=== PATIENT | female | born 1970 | race Caucasian/White ===

== ENCOUNTER 2017-02-06 20:43 | Emergency (ER) | payer SELFPAY ==
[~2017-02-06] VITALS: Ht 144.8 cm; Wt 43.1 kg
[2017-02-06] MEDS ORDERED: SUCRALFATE 1GM T1 GM NG (21:00)
[2017-02-06] MEDS ORDERED: OMEPRAZOLE20 MG PO (21:00)
[2017-02-06] MEDS ORDERED: PANTOPRAZOLE SO40 MG PO (21:01)
--- OUTSIDE RECORDS SUMMARY | 2017-02-06 21:27 | External Medical Summary Rpt | CCD ---
Author Author [employer] Organization [employer] Address Unknown Phone Unavailable Purpose Continuity of Care Document - through 2016
--- OUTSIDE RECORDS SUMMARY | 2017-02-06 21:27 | External Medical Summary Rpt | CCD ---
Demographics Preferred Language Romanian Marital Status Unknown Buddhist Affiliation Unknown Race Unknown Ethnic Group Unknown Author Author , SHILA FUCHS Address Unknown Phone Immunization No patient found.
--- OUTSIDE RECORDS SUMMARY | 2017-02-06 21:27 | External Medical Summary Rpt | CCD ---
Author Author , SHILA FUCHS Address Unknown Phone [email or web address] Purpose Continuity of Care Document - through 2016
--- OUTSIDE RECORDS SUMMARY | 2017-02-06 21:27 | External Medical Summary Rpt | CCD ---
Author Author , SHILA FUCHS Address Unknown Phone [email or web address] Purpose Continuity of Care Document - through 2016
--- OUTSIDE RECORDS SUMMARY | 2017-02-06 21:27 | External Medical Summary Rpt | CCD ---
Demographics Preferred Language Azeri Marital Status Unknown Islam Affiliation Unknown Race Unknown Ethnic Group Unknown Author Author , SHILA FUCHS Address Unknown Phone Immunization No patient found.
--- OUTSIDE RECORDS SUMMARY | 2017-02-06 21:28 | External Medical Summary Rpt ---
Demographics Preferred Language Unknown Marital Status Unknown Latter Day Affiliation Unknown Race Unknown Ethnic Group Unknown Author Author SHILA Knapp, [employer] Organization [employer] Address Unknown Phone Unavailable
--- OUTSIDE RECORDS SUMMARY | 2017-02-06 21:28 | External Medical Summary Rpt ---
Demographics Preferred Language Unknown Marital Status Unknown Roman Catholic Affiliation Unknown Race Unknown Ethnic Group Unknown Author Author SHILA Knapp, [employer] Organization [employer] Address Unknown Phone Unavailable
[2017-02-06 22:01] LABS: HEMOGLOBIN 9.6 g/dL (12.2-16.2); LYMPH # 2.3 K/mm3 (0.7-4.5); LYMPH % 22.9 % (10-50.0)
[2017-02-06 22:49] LABS: URINE BILIRUBIN - DIPSTICK NEGATIVE (NEG); URINE BLOOD NEGATIVE (NEG)
[2017-02-06 22:51] LABS: URINE SQUAMOUS CELLS OCC #/hpf (0-5)
--- NOTE | 2017-02-06 23:06 | RADIOLOGY REPORT PS360 ---
CHEST(2 VIEWS-NOT PORTABLE) Ordering physician: Age: 46 years Female INDICATION: chest symptomsCOUGHING congestion. Smoker. Symptoms 3 weeks. PROCEDURE: CHEST(2 VIEWS-NOT PORTABLE) No previous studies for comparison FINDINGS: Lungs, hyperexpanded, but clear with nothing definitely acute. No focal pneumonia. Slight coarsening markings at lower lobe on lateral view but with no definitive pneumonia. The upper lung hendricks appear clear. Heart alpa and mediastinal structures satisfactory. No pneumothorax. No pleural effusion. Heart normal size. Normal pulmonary vascularity. Hilar and mediastinal structures appear satisfactory. Chest wall unremarkable.. IMPRESSION ----- No focal pneumonia. Nothing definitely acute Hyperexpansion suggesting developing COPD
--- NOTE | 2017-02-06 23:24 | Emergency Room Report ---
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 N Clinical Suspician of Infection? Y Mental Status: 1 - Regular (Normal Baseline) Sepsis Risk:Possible Sepsis Risk Have you (or family members/close friends) recently traveled outside the [place]? N If Yes, where/when: Have you had exposure to infectious disease within the past month? N TB? Other? Specify: Source patient, RN notes reviewed, family, RN/MD Exam Limitations no limitations Comment This is a 46-year-old lady arriving to the emergency room with shortness of breath, for the past 10 days. Patient smokes approximately 2 packs of cigarettes a day, advised that she has no financial resources to afford any medications. Patient has any chest pain, any palpitations, any recent travel, any recent exposure to sick contacts. ALLERGIES Coded Allergies: No Known Allergies (02/06/17) Home Medications Reported Medications Omeprazole (Omeprazole 20MG) 20 MG PO BID Sucralfate (Sucralfate 1GM Tablet) 1 GM NG ACHS Pantoprazole Sodium (Pantoprazole 40MG) 40 MG PO BID History Medical History General CAD? No Angina: No GA: No Hypertension? Yes Hyperlipidemia? No CHF? No DVT? No PE? No COPD? Yes Asthma? Yes Anemia? Yes GERD? Yes Gastric ulcers? Yes GI Bleed? Yes Hernia? No Thyroid Problems? No Hypothyroidism? No CVA? No Seizures? Yes Diabetes? No Renal Insuffiency? No End Stage Renal Disease? No UTI? No Stones? No BPH? No GB Disease: No Nephritic Syndrome? No Asplenia? No Hepatitis? No Sickle Cell Disease? No Arthritis? No Migraines? Yes Cataracts? No Glaucoma? No MRSA? No HIV? No TB? No Anxiety? No Depression? No Cancer? No More? 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 No: respiratory distress. Lung Sounds bilateral: wheezing. 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 No Comment 0-given the patient's limited financial abilities I have advised her that she will need a one time dose of Depo-Medrol and Bicillin L-A. When the nurse came the patient's room with medications ready patient that she is fearful of needles and refuses both medications requesting oral alternatives instead. Canceled the IM shots, was sent patient home with Keflex and prednisone, instructed to follow up with PCP if no better. Patient strongly encouraged to stop smoking. Results/Orders Laboratory Tests 02/06/172239: Urine Color YELLOW, Urine Appearance CLEAR, Urine pH 7.0, Ur Specific [place] 1.010, Urine Protein NEGATIVE, Urine Ketones NEGATIVE, Urine Blood NEGATIVE, Urine Nitrate NEGATIVE, Urine Bilirubin NEGATIVE, Urine Urobilinogen 0.2, Ur Leukocyte Esterase NEGATIVE, Urine WBC 3-5, Ur Squamous Epith Cells OCC, Urine Glucose NEGATIVE 02/06/172109: Lactic Acid 0.8 02/06/172109: Sodium 142, Potassium 3.4 L, Chloride 107, Carbon Dioxide 26, BUN 20 H, Creatinine 0.8, Estimated Creat Clear 60, Estimated GFR (MDRD) 77, Glucose 90, Calcium 8.7, Total Bilirubin 0.1 L, AST 12 L, ALT 12, Alkaline Phosphatase 82, Total Protein 7.3, Albumin 3.6, Globulin 3.7 H, Albumin/Globulin Ratio 1.0 L, WBC 9.9, RBC 4.43, Hgb 9.6 L, Hct 32.9 L, MCV 74.3 L, RDW 16.9, Plt Count 381 , MPV 7.6, Gran % 65.3, Gran # 6.5, Lymphocytes % 22.9, Monocytes % 6.8, Eosinophils % 4.2, Basophils % 0.7, Lymphocytes # 2.3, Monocytes # 0.7, Eosinophils # 0.4, Basophils # 0.1, PUBS MCHC 29.3 L, MCH 21.7 L Current Medication Orders Sig/Shana Start time Last Medication Dose Route Stop Time Status Admin Cephalexin 1,000 MG ONCE ONE 02/06 2345 DCDr 02/06 Monohydrate PO 02/06 Prednisone 40 MG ONCE ONE 02/06 2345 DCD 02/06 PO 02/06 2346 233 Cephalexin 0 .STK-MED ONE 02/06 2333 DC Monohydrate PO Prednisone 0 .STK-MED ONE 02/07 2332 DC .ROUTE Methylprednisolone 40 MG ONCE ONE 02/06 2330 CAN Acetate IM 02/06 2331 Penicillin G 1,200,000 UNITS ONCE ONE 02/06 2330 CAN Benzathine IM 02/06 2331 Penicillin G 0 .STK-MED ONE 02/06 2325 DC Benzathine IM Methylprednisolone 0 .STK-MED ONE 02/07 2324 DC Acetate IM Sodium Chloride 10 ML PRN PRN 02/06 2100 DCD IV 02/07 2053 Orders Procedure Date/time Status IV SALINE LOCK 02/06 2055 Active CULTURE, BLOOD 02/06 2055 Active URINALYSIS/COMPLETE 02/06 2055 Complete URINE 02/06 2055 Complete LACTIC ACID 02/06 2055 Complete CBC WITH AUTO DIFF 02/06 2055 Complete CHEM 12 PROFILE 02/06 2055 Complete XRAY/CT/US XRAY/CT/US XRAY chest XR interpretation by reviewed by me, discussed w/radiologist Xray Results no infiltrates, normal heart size, normal lung inflation macey, early chronic obstructive pulmonary disease Departure Departure Time of Disposition 2320 Disposition DC Home or Self Care(routine) Clinical Impression Primary Impression: COPD exacerbation Secondary Impressions: Acute exacerbation of chronic bronchitis Condition STABLE Referrals Neida HAGAN,Darrel Calderón: 2 Days-Call Office Patient Instructions DI for Acute Bronchitis, DI for Chronic Obstructive Pulmonary Disease Additional Instructions Please call Judit Wakefield in the morning, as discussed. Please picker packer a local physician from the physician referral list, attached. Discharge Counseling Counseled pt/family regarding diagnosis, test results, medications/RX, home care, follow up needs, tobacco counseling,> 3min Comment Please call Judit Wakefield in the morning, as discussed. Please picker packer a local physician from the physician referral list, attached. Prescriptions Current Visit Scripts CEPHALEXIN (Keflex 500MG Capsule) 500 MG PO QID #28 CAP Prednisone (Prednisone 20MG) 20 MG PO BID #10 TAB ED Critical Care Critical Care No at [id number]
[2017-02-06 23:32] VITALS: BP 147/97
[2017-02-06] MEDS ORDERED: KEFLEX 500MG.500 MG PO (23:33)
[2017-02-06] MEDS ORDERED: PREDNISONE 20MG20 MG PO (23:34)
== END 2017-02-06 23:39 | disposition home or self-care (01) ==
LOC: ER 20:43
PROVIDERS: Emergency Medicine
DX: J44.1 Chronic obstructive pulmonary disease with (acute) exacerbation (principal); I10 Essential (primary) hypertension; K21.9 Gastro-esophageal reflux disease without esophagitis; F17.210 Nicotine dependence, cigarettes, uncomplicated